=== PATIENT | male | born 1970 | race Caucasian/White ===

== ENCOUNTER → 2017-08-28 12:50 | Outpatient (CLI) | payer OTHER, SELFPAY ==
[2017-08-28 13:59] VITALS: PULSE 72; PULSE 76
== END ==
PROVIDERS: PCP Family Medicine; Visit Provider Family Medicine
DX: R06.09 Other forms of dyspnea (principal)
CPT/HCPCS: 94060; 94640

== ENCOUNTER → 2017-10-05 08:39 | Outpatient (CLI) | payer OTHER, SELFPAY ==
--- NOTE | 2017-10-05 08:44 | XR_ITS ---
XR wrist RT min 3V COMPARISON: None HISTORY: Right wrist pain TECHNIQUE: AP lateral and oblique views FINDINGS: The distal radius and ulna appear intact. The carpal bones are normal. Is a very tiny bone fragment with smooth borders adjacent to the head of the navicular bone probably due to old trauma. The soft tissues are normal. IMPRESSION: Negative for acute pathology
== END ==
PROVIDERS: PCP Family Medicine; Visit Provider Family Medicine
DX: M25.531 Pain in right wrist (principal)
CPT/HCPCS: 73110